=== PATIENT | male | born 1950 | race Caucasian/White ===

== ENCOUNTER → 2024-08-28 | Outpatient (CLI) | payer OTHER, SELFPAY ==
[2024-08-28 08:14] LABS: Collection Type, Urine Clean Catch
[2024-08-28 08:42] LABS: Basophils % (Auto) 1 % (0-2.5); Eosinophils # (Auto) 0.1 Thou/mm3 (0.0-0.5); Eosinophils % (Auto) 3 % (0-10); Hematocrit 39.6 % (41.0-53.0); Hemoglobin 14.4 g/dL (13.5-16.0); Immature Granulocytes % (Auto) 0 % (0-0); Lymphocytes # (Auto) 1.9 Thou/mm3 (1.0-4.8); Lymphocytes % (Auto) 42 % (10-50); Mean Corpuscular HGB Conc 36.4 g/dl (31.0-37.0); Mean Corpuscular Volume 85 fL (80-100); Monocytes # (Auto) 0.6 Thou/mm3 (0.0-0.8); Monocytes % (Auto) 13 % (0-12); Neutrophils # (Auto) 1.8 Thou/mm3 (1.8-7.7); Neutrophils % (Auto) 41 % (37-80); Nucleated Red Blood Cell % 0 /100 WBC (0); Platelet Count 222 Thou/mm3 (140-440); RDW Standard Deviation 37.4 fL (35.1-43.9); Red Blood Count 4.64 Miln/mm3 (4.50-5.90); White Blood Count 4.5 Thou/mm3 (3.8-10.6)
[2024-08-28 08:48] LABS: Bilirubin,Urine Negative (Negative); Blood,Urine Negative (Negative); Clarity,Urine Clear (Clear/Hazy); Color,Urine Lt-Yellow (Lt Yel-Yel); Glucose, Urine Negative (Negative); Ketones,Urine Negative (Negative); Leukocyte Esterase,Urine Negative (Negative); Nitrite,Urine Negative (Negative); Protein,Urine Negative (Neg - Trace); RBC,Urine 2 /hpf (0-3); Specific Gravity,Urine 1.017 (1.001-1.035); Squamous Epithelial Cell,Urine < 1 /hpf (0-5); Urobilinogen,Urine Negative mg/dL (0.0-1.0); WBC,Urine < 1 /hpf (0-5)
[2024-08-28 09:10] LABS: Prostate Specific Antigen 1.13 ng/mL (0-4.00)
[2024-08-28 09:18] LABS: Alanine Aminotransferase 20 U/L (10-49); Albumin, Serum 4.8 gm/dL (3.4-4.8); Albumin/Globulin Ratio 2.2 (1.2-2.2); Alkaline Phosphatase 67 U/L (46-116); Anion Gap 8 (7-16); Aspartate Amino Transferase 17 U/L (0-34); BUN/Creatinine Ratio 20 Ratio (12-20); Bilirubin,Total 0.6 mg/dL (0.3-1.2); Blood Urea Nitrogen 18 mg/dL (9-23); Calcium 9.2 mg/dL (8.3-10.6); Calcium (Corrected) 9.2 mg/dL (8.5-10.1); Carbon Dioxide 26.1 mMol/L (20.0-31.0); Cardiac Risk Estimate 3.1 RATIO (4.0-6.7); Chloride 108 mMol/L (98-107); Cholesterol 126 mg/dL (132-200); Creatinine (Component) 0.9 mg/dL (0.6-1.3); Globulin 2.2 gm/dL (2.3-3.5); Glucose 115 mg/dL (74-106); HDL Cholesterol 41 mg/dL (40-60); LDL Cholesterol,Calculated 68 mg/dL (0-130); Osmolality,Calculated 286 (275-295); Sodium 142 mMol/L (136-145); Triglycerides 83 mg/dL (30-150); eGFR > 60 See Note
== END | disposition home or self-care (01) ==
LOC: COPL 07:41
PROVIDERS: PCP Internal Medicine; Referring Provider Urology; Visit Provider Urology
DX: I10 Essential (primary) hypertension (principal); E78.5 Hyperlipidemia, unspecified; N40.1 Benign prostatic hyperplasia with lower urinary tract symptoms
CPT/HCPCS: 36415; 80053; 80061; 81001; 84153; 85025

== ENCOUNTER → 2024-09-04 | Outpatient (CLI) | payer OTHER, SELFPAY ==
[2024-09-04 11:35] LABS: Vitamin B12 381 pg/mL (211-911); Vitamin D 25 Hydroxy Total 27.6 ng/mL (7.3-40.2)
[2024-09-16 07:00] LABS: Testosterone, Free,Dialysis 49.2 pg/mL (30.0-135.0); Testosterone, Total, Dialysis 295 ng/dL (250-1100)
== END | disposition home or self-care (01) ==
PROVIDERS: PCP Internal Medicine; Referring Provider Internal Medicine; Visit Provider Internal Medicine
DX: E53.9 Vitamin B deficiency, unspecified (principal); E55.9 Vitamin D deficiency, unspecified
CPT/HCPCS: 36415; 82306; 82607; 84402; 84403

== ENCOUNTER → 2024-09-08 | Outpatient (BNVA) | payer OTHER, SELFPAY | END | disposition home or self-care (01) | PROVIDERS: PCP Internal Medicine; Referring Provider Internal Medicine; Visit Provider Urology | DX: N40.1 Benign prostatic hyperplasia with lower urinary tract symptoms (principal); N13.8 Other obstructive and reflux uropathy; I10 Essential (primary) hypertension; F32.9 Major depressive disorder, single episode, unspecified; G47.33 Obstructive sleep apnea (adult) (pediatric) | CPT/HCPCS: 81003; 99212; G0463 ==

== ENCOUNTER → 2024-11-13 | Outpatient (CLI) | payer OTHER, SELFPAY ==
[2024-11-24 10:52] LABS: Testosterone, Free,Dialysis 48.5 pg/mL (30.0-135.0); Testosterone, Total, Dialysis 230 ng/dL (250-1100)
== END | disposition home or self-care (01) ==
LOC: COPL 07:58
PROVIDERS: PCP Internal Medicine; Referring Provider Urology; Visit Provider Urology
DX: E53.9 Vitamin B deficiency, unspecified (principal); E55.9 Vitamin D deficiency, unspecified
CPT/HCPCS: 36415; 84402; 84403

== ENCOUNTER → 2025-02-10 | Outpatient (CLI) | payer OTHER, SELFPAY ==
[2025-02-10 11:48] LABS: Alanine Aminotransferase 19 U/L (10-49); Albumin, Serum 4.9 gm/dL (3.4-4.8); Albumin/Globulin Ratio 2.7 (1.2-2.2); Alkaline Phosphatase 62 U/L (46-116); Anion Gap 8 (7-16); Aspartate Amino Transferase 17 U/L (0-34); BUN/Creatinine Ratio 13 Ratio (12-20); Bilirubin,Total 0.6 mg/dL (0.3-1.2); Blood Urea Nitrogen 13 mg/dL (9-23); Calcium 9.1 mg/dL (8.3-10.6); Calcium (Corrected) 9.1 mg/dL (8.5-10.1); Carbon Dioxide 26.8 mMol/L (20.0-31.0); Chloride 107 mMol/L (98-107); Creatinine (Component) 1.0 mg/dL (0.6-1.3); Globulin 1.8 gm/dL (2.3-3.5); Glucose 123 mg/dL (74-106); Osmolality,Calculated 284 (275-295); Potassium 4.2 mMol/L (3.4-5.1); Sodium 142 mMol/L (136-145); Total Protein 6.7 gm/dL (5.7-8.2); eGFR > 60 See Note
[2025-02-10 12:27] LABS: D-Dimer 727 ng/mL (<600)
== END | disposition home or self-care (01) ==
LOC: COPL 10:20
PROVIDERS: PCP Internal Medicine; Referring Provider Internal Medicine; Visit Provider Internal Medicine
DX: R06.02 Shortness of breath (principal)
CPT/HCPCS: 36415; 80053; 85379

== ENCOUNTER 2025-02-13 08:02 | Emergency (ER) | payer OTHER, SELFPAY ==
[2025-02-13] VITALS (7 sets, daily range): BP systolic 115–128; BP diastolic 74–89; PULSE 72–97; RESP 14–20; TEMP 36.6–37.1; O2SAT 95–97
--- NOTE | 2025-02-13 08:34 | XR_ITS ---
Examination: CTA chest with intravenous contrast 2-D reconstructions 3-D reconstructions, vascular Date and time of exam: February 13, 2025, 1138 hours INDICATIONS: Chest pain shortness of breath beginning 2 weeks ago CTDI: vol (mGy) 18.8 DLP: (mGycm) 121 Technique: Multiple axial sections of the thorax have been obtained. 3 mm slice thickness, from below the hemidiaphragms to above the apices of the lungs. Mediastinal and lung density settings have been obtained. 2-D sagittal and coronal reconstructions. 3-D angiographic renderings, 3-D volume renderings, 3D post processing, vascular maximum intensity projections obtained. Contrast administered is 60 cc Isovue-300 Low dose protocols were performed. One or more of the following dose reduction techniques were used; automated exposure control, adjustment of the mA and/or KV according to patient size, use of iterative reconstruction technique. Findings: No thoracic aortic aneurysmal dilatation or dissection. Pulmonary artery segments are not enlarged. No pulmonary artery filling defects No paratracheal or tracheobronchial bronchopulmonary adenopathy No pneumonia or pulmonary edema or pleural disease No focal liver or splenic lesions No gallstones No pancreatic or adrenal mass Upper pole left renal cyst 6.2 cm Partial visualization right renal cyst at the 7.2 cm IMPRESSION: No thoracic aortic aneurysm dilatation or dissection Negative for pulmonary artery emboli No pneumonia, pulmonary edema, pleural disease or pulmonary nodules
--- NOTE | 2025-02-13 08:34 | EKG_ITS ---
[facility] Test Date: 2025-02-13 Pat Name: OSCAR GUTIERREZ Department: Room: - Gender: Male [place]: : 1950 Requested By: Masood Kaur Order Number: [id number] Reading MD: Masood Kaur Measurements Intervals [place] Rate: 87 P: TN: QRS: 39 QRSD: 95 T: 45 QT: 345 QTc: 417 Interpretive Statements ATRIAL FIBRILLATION ABNORMAL RHYTHM ECG Compared to ECG 12/19/2019 10:59:24 Sinus bradycardia no longer present /store/S0/[id number]/[id number].pdf
--- NOTE | 2025-02-13 08:35 | PD.EDRME ---
Rapid Medical Screening Exam [facility] Arrival date/time: 02/13/25 08:02 74-year-old male with a history of hypertension presents to the emergency room with a chief complaint of shortness of breath and some chest tightness x 2 weeks. Patient was sent here by his primary care provider due to an elevated D-dimer level for a CT to rule out pulmonary embolism. I have greeted and performed a focused initial assessment of this patient. A comprehensive ED assessment and evaluation of the patient, analysis of all test results, and completion of the medical decision making process will be conducted by additional ED providers. Chief Complaint: General Adult/Misc Complain Time Seen by Provider: 02/13/25 08:25 Vital signs: Vital Signs Temperature 98 F 02/13/25 08:20 Pulse Rate 93 02/13/25 08:20 Respiratory Rate 18 02/13/25 08:20 Blood Pressure 115/74 02/13/25 08:20 Pulse Oximetry (%) 98 02/13/25 08:20 Oxygen Delivery Method Room Air 02/13/25 08:20 Vital signs reviewed by provider: Yes Exam: Clear bilateral lung sounds with auscultation Strong and regular rhythm S1 and S2 noted Clinical Impression: Elevated D-dimer/pulmonary embolism/chest pain
[2025-02-13 08:56] LABS: Basophils # (Auto) 0.0 Thou/mm3 (0.0-0.2); Basophils % (Auto) 1 % (0-2.5); Eosinophils # (Auto) 0.0 Thou/mm3 (0.0-0.5); Eosinophils % (Auto) 1 % (0-10); Hematocrit 44.2 % (41.0-53.0); Hemoglobin 15.6 g/dL (13.5-16.0); Immature Granulocytes Auto 0.01 Thou/mm3 (0.00-0.00); Lymphocytes # (Auto) 2.2 Thou/mm3 (1.0-4.8); Lymphocytes % (Auto) 36 % (10-50); Mean Corpuscular HGB Conc 35.3 g/dl (31.0-37.0); Mean Corpuscular Hemoglobin 31.0 pg (25.0-35.0); Mean Corpuscular Volume 88 fL (80-100); Monocytes # (Auto) 0.7 Thou/mm3 (0.0-0.8); Monocytes % (Auto) 11 % (0-12); Neutrophils # (Auto) 3.2 Thou/mm3 (1.8-7.7); Neutrophils % (Auto) 51 % (37-80); Nucleated Red Blood Cell # 0.00 Thou/mm3 (0.00-0.00); Nucleated Red Blood Cell % 0 /100 WBC (0); Platelet Count 256 Thou/mm3 (140-440); RDW Standard Deviation 39.6 fL (35.1-43.9); Red Blood Count 5.03 Miln/mm3 (4.50-5.90); White Blood Count 6.2 Thou/mm3 (3.8-10.6)
--- NOTE | 2025-02-13 09:04 | XR_ITS ---
EXAMINATION: AP chest single view TECHNIQUE: AP portable semiupright chest single view Date and time: February 13, 2025, 0922 hours, comparison December 05, 2018 INDICATIONS: Coughing beginning 3 days ago. FINDINGS: Normal heart size Lungs are clear. Prominent osteopenia. Lower cervical plate IMPRESSION: No active disease
[2025-02-13 09:11] LABS: B-Type Natriuretic Peptide 126 pg/mL (0-100); INR 1.1 (0.9-1.3); Partial Thromboplastin Time 27.4 Seconds (22.0-36.0); Prothrombin Time 11.3 Seconds (9.0-12.2)
[2025-02-13 09:12] LABS: D-Dimer 713 ng/mL (<600)
[2025-02-13 09:13] LABS: Alanine Aminotransferase 22 U/L (10-49); Albumin, Serum 5.0 gm/dL (3.4-4.8); Albumin/Globulin Ratio 2.3 (1.2-2.2); Alkaline Phosphatase 66 U/L (46-116); Anion Gap 8 (7-16); Aspartate Amino Transferase 16 U/L (0-34); BUN/Creatinine Ratio 11 Ratio (12-20); Bilirubin,Total 0.8 mg/dL (0.3-1.2); Blood Urea Nitrogen 14 mg/dL (9-23); Calcium 9.5 mg/dL (8.3-10.6); Calcium (Corrected) 9.5 mg/dL (8.5-10.1); Carbon Dioxide 27.6 mMol/L (20.0-31.0); Chloride 105 mMol/L (98-107); Creatinine (Component) 1.3 mg/dL (0.6-1.3); Estimated Creatinine Clearance 54.1 mL/min (>60); Globulin 2.2 gm/dL (2.3-3.5); Glucose 120 mg/dL (74-106); Magnesium 2.5 mg/dL (1.6-2.6); Osmolality,Calculated 282 (275-295); Potassium 4.0 mMol/L (3.4-5.1); Sodium 141 mMol/L (136-145); Total Protein 7.2 gm/dL (5.7-8.2); Troponin I < 0.020 ng/mL (0.0-0.045); eGFR 58 See Note
[2025-02-13] MEDS: SODIUM CHLORIDE 0.9% 1000 ML 1,000 ML 100 ML IV (09:23)
[2025-02-13 09:35] LABS: Collection Type, Urine Clean Catch; Squamous Epithelial Cell,Urine 0 /hpf (0-5)
[2025-02-13 09:37] LABS: Basophils # (Auto) 0.0 Thou/mm3 (0.0-0.2); Basophils % (Auto) 1 % (0-2.5); Eosinophils # (Auto) 0.1 Thou/mm3 (0.0-0.5); Eosinophils % (Auto) 1 % (0-10); Hematocrit 42.8 % (41.0-53.0); Hemoglobin 15.1 g/dL (13.5-16.0); Immature Granulocytes Auto 0.01 Thou/mm3 (0.00-0.00); Lymphocytes # (Auto) 1.8 Thou/mm3 (1.0-4.8); Lymphocytes % (Auto) 33 % (10-50); Mean Corpuscular HGB Conc 35.3 g/dl (31.0-37.0); Mean Corpuscular Hemoglobin 30.8 pg (25.0-35.0); Mean Corpuscular Volume 87 fL (80-100); Monocytes # (Auto) 0.7 Thou/mm3 (0.0-0.8); Monocytes % (Auto) 13 % (0-12); Neutrophils # (Auto) 2.8 Thou/mm3 (1.8-7.7); Neutrophils % (Auto) 52 % (37-80); Nucleated Red Blood Cell # 0.00 Thou/mm3 (0.00-0.00); Nucleated Red Blood Cell % 0 /100 WBC (0); Platelet Count 231 Thou/mm3 (140-440); RDW Standard Deviation 39.3 fL (35.1-43.9); Red Blood Count 4.90 Miln/mm3 (4.50-5.90); White Blood Count 5.4 Thou/mm3 (3.8-10.6)
[2025-02-13 09:56] LABS: Troponin I < 0.020 ng/mL (0.0-0.045)
[2025-02-13 11:53] LABS: Bilirubin,Urine Negative (Negative); Blood,Urine 2+ (Negative); Clarity,Urine Clear (Clear/Hazy); Color,Urine Yellow (Lt Yel-Yel); Culture Indicated,Urine Not Indicated; Glucose, Urine Negative (Negative); Hyaline Casts,Urine < 1 /hpf (0-1); Ketones,Urine Negative (Negative); Leukocyte Esterase,Urine Negative (Negative); Nitrite,Urine Negative (Negative); PH,Urine 6.0 (5.0-7.0); Protein,Urine Trace (Neg - Trace); RBC,Urine 19 /hpf (0-3); Specific Gravity,Urine 1.024 (1.001-1.035); Urobilinogen,Urine Negative mg/dL (0.0-1.0); WBC,Urine 1 /hpf (0-5)
--- NOTE | 2025-02-13 15:07 | PD.EDADULT ---
ED General RME/HPI General Chief complaint: General Adult/Misc Complain Stated complaint: TOLD TO COME BACK FOR HIGH D-DIMER Time Seen by Provider: 02/13/25 08:25 Arrival date/time: 02/13/25 08:02 Limitations: no limitations RME / HPI RME / HPI narrative: 02/13/25 08:02 74-year-old male with a history of hypertension presents to the emergency room with a chief complaint of shortness of breath and some chest tightness x 2 weeks. Patient was sent here by his primary care provider due to an elevated D-dimer level for a CT to rule out pulmonary embolism. I have greeted and performed a focused initial assessment of this patient. A comprehensive ED assessment and evaluation of the patient, analysis of all test results, and completion of the medical decision making process will be conducted by additional ED providers. DR. RIZO MAIN ED EVALUATION: 74 year old male with history of hypertension presents to the ED referred by his PCP Dr. Renteria for evaluation of elevated D-Dimer level today. Patient states he had outpatient labs performed and called today stating the D-Dimer was 727. In the ED, patient complains of feeling slightly dizzy and short of breath. Otherwise, has no other medical complaints. Denies fevers, chills, chest pain, abdominal pain, n/v/d, or urinary symptoms. Exam: Clear bilateral lung sounds with auscultation Strong and regular rhythm S1 and S2 noted Impression: Elevated D-dimer/pulmonary embolism/chest pain Related Data Home Medications ?Medication ?Instructions ?Recorded ?Confirmed amlodipine 10 mg tablet 10 mg PO DAILY 12/19/19 09/08/24 furosemide 20 mg tablet 20 mg PO QDAY 12/19/19 09/08/24 montelukast 10 mg tablet 10 mg PO QDAY 12/19/19 09/08/24 pantoprazole 20 mg tablet,delayed 20 mg PO QDAY 12/19/19 09/08/24 release Previous Rx's ?Medication ?Instructions ?Recorded docusate sodium 100 mg capsule 100 mg PO QDAY #30 caps 12/23/19 Allergies Allergy/AdvReac Type Severity Reaction Status Date / Time No Known Allergies Allergy Verified 02/13/25 08:05 Review of Systems Review of Systems Systems Reviewed: All systems reviewed, normal except as documented Past Medical History Past Medical History CARDIAC: Positive Cardiac Disorders (htn), Hypercholesterolemia (TAKES MED) and Hypertension RESPIRATORY: Positive Asthma (cpap) and Sleep Apnea (CPAP) GASTROINTESTINAL: Positive Gastrointestinal Disorders and Hiatal Hernia GENITOURINARY: Positive Genitourinary Disorders and Benign Prostatic Hyperplasia (TAKES MED) MUSCULOSKELETAL: Positive Musculoskeletal Disorders and Fractures (RIGHT SHOULDER) Family History FAMILY HISTORY: Positive Family Cardiac Disorders (MOTHER,BROTHERS (HTN)), Family Cancer (BROTHER (TUMOR)) and Family Surgery (FATHER,BROTHER) Surgical History SURGICAL: Negative Pacemaker Social History SMOKING STATUS: Never smoker ED Exam General Limitations: Present no limitations General appearance: Present alert and anxious Head Head exam: Present atraumatic, normocephalic and normal inspection Eye Eye exam: Present normal appearance, PERRL and EOMI ENT ENT exam: Present normal exam, normal oropharynx and mucous membranes moist Neck Neck exam: Present normal inspection, full ROM and trachea midline Chest Chest inspection: Present normal inspection and symmetric chest wall rise Respiratory Respiratory exam: Present normal lung sounds bilaterally Cardiovascular Cardiovascular exam: Present regular rate, normal rhythm and normal heart sounds Abdominal Exam Abdominal exam: Present soft and normal bowel sounds Extremities Exam Extremities exam: Present normal inspection and full ROM Back Exam Back exam: Present normal inspection and full ROM Neurological Exam Neurological exam: Present alert, oriented X3 and CN II-XII intact Psychiatric Psychiatric exam: Present anxious Skin Skin exam: Present warm, dry, intact and normal color Course Quality Measures none Orders Category Date Time Status CT Screening NOW Care 02/13/25 08:35 Completed Technology Lead NOW Care 02/13/25 09:04 Completed Continuous Pulse Oximetry NOW Care 02/13/25 09:04 Completed EKG (ED ONLY) *Do not use* NOW Care 02/13/25 08:34 Completed IV [Insert IV] NOW Care 02/13/25 09:04 Completed Insert IV NOW Care 02/13/25 09:[address] angio chest Stat Exams 02/13/25 08:34 Completed EKG (ED Only) Stat Exams 02/13/25 08:34 Draft XR chest 1V portable Stat Exams 02/13/25 09:04 Completed B-Type Natriuretic Peptide Stat Lab 02/13/25 08:41 Completed CBC Stat Lab 02/13/25 08:41 Completed CBC Stat Lab 02/13/25 09:16 Completed Comprehensive Metabolic Panel Stat Lab 02/13/25 08:41 Completed D-Dimer Stat Lab 02/13/25 08:41 Completed Magnesium Stat Lab 02/13/25 08:41 Completed Partial Thromboplastin Time Stat Lab 02/13/25 08:41 Completed Prothrombin Time with INR Stat Lab 02/13/25 08:41 Completed Troponin I Stat Lab 02/13/25 08:41 Completed Troponin I Stat Lab 02/13/25 09:16 Completed Urinalysis, C/S if Indicated Stat Lab 02/13/25 09:24 Completed Sodium Chloride 0.9% 1000 ml [Ns] 1,000 ml Med 02/13/25 09:04 Discontinued IV 100 mls/hr Vital Signs Vital signs: Vital Signs Temperature 98 F 02/13/25 08:20 Pulse Rate 93 02/13/25 08:20 Respiratory Rate 18 02/13/25 08:20 Blood Pressure 115/74 02/13/25 08:20 Pulse Oximetry (%) 96 02/13/25 08:20 Oxygen Delivery Method Room Air 02/13/25 08:20 Pulse ox is 96% on room air which is adequate. Discharge Plan Plan Patient Disposition: HOME (Self Care) Patient condition on transfer: Stable Prescriptions/Referrals Prescriptions/Med Rec: No Action pantoprazole 20 mg Tablet,Delayed Release (Dr/Ec) 20 mg PO QDAY amlodipine 10 mg Tablet 10 mg PO DAILY montelukast 10 mg Tablet 10 mg PO QDAY furosemide 20 mg Tablet 20 mg PO QDAY docusate sodium 100 mg Capsule 100 mg PO QDAY Qty: 30 0RF Referrals: Kristopher Renteria MD [Primary Care Provider, Nephrology] - In 1 week Problem List Clinical Impression: Elevated d-dimer, Acute dyspnea Patient/Caregiver Discharge Instructions Discharge Activity: activity as tolerated Education Materials: ED Shortness of Breath (Dyspnea) Additional Instructions: Follow-up with your doctor next week. continue your usual medications.. Print Language: Hebrew Stand Alone Forms: Mariela Award Info., Patient Portal Info Letter MDM Narrative MDM hospital course (for use when minimal MDM required): Alejandra Garcia am scribing for and in the presence of Dr. Rizo. Clinical Information Provided by: patient Medical Records reviewed [facility] Meds/Rx considered, not ordered None Labs/Rad/Tests considered, not ordered None Chronic Illness/Social Conditions which may negatively complicate care or outcome(s)-explain: None or not applicable EKG Interpretation EKG #1: EKG Interpretation: EKG @ 08:45AM. Atrial fibrillation, rate 87, no STEMI. Labs Lab(s) Interpretation(s): No acute findings Imaging Imaging Interpretation(s): Ordering Physician: Masood Calvillo Date of Service: 02/13/25 Procedure(s): CT angio chest Accession Number(s): [id number] cc: Masood Calvillo; Pancho Morris MD; Kristopher Renteria MD~ Examination: CTA chest with intravenous contrast 2-D reconstructions 3-D reconstructions, vascular Date and time of exam: February 13, 2025, 1138 hours INDICATIONS: Chest pain shortness of breath beginning 2 weeks ago CTDI: vol (mGy) 18.8 DLP: (mGycm) 121 Technique: Multiple axial sections of the thorax have been obtained. 3 mm slice thickness, from below the hemidiaphragms to above the apices of the lungs. Mediastinal and lung density settings have been obtained. 2-D sagittal and coronal reconstructions. 3-D angiographic renderings, 3-D volume renderings, 3D post processing, vascular maximum intensity projections obtained. Contrast administered is 60 cc Isovue-300 Low dose protocols were performed. One or more of the following dose reduction techniques were used; automated exposure control, adjustment of the mA and/or KV according to patient size, use of iterative reconstruction technique. Findings: No thoracic aortic aneurysmal dilatation or dissection. Pulmonary artery segments are not enlarged. No pulmonary artery filling defects No paratracheal or tracheobronchial bronchopulmonary adenopathy No pneumonia or pulmonary edema or pleural disease No focal liver or splenic lesions No gallstones No pancreatic or adrenal mass Upper pole left renal cyst 6.2 cm Partial visualization right renal cyst at the 7.2 cm IMPRESSION: No thoracic aortic aneurysm dilatation or dissection Negative for pulmonary artery emboli No pneumonia, pulmonary edema, pleural disease or pulmonary nodules Dictated By: Pancho Morris MD Signed By: <Electronically signed by Pancho Morris MD in [place]> 02/13/25 1200 Ordering Physician: Joe Rizo MD Date of Service: 02/13/25 Procedure(s): XR chest 1V portable Accession Number(s): [id number] cc: Joe Rizo MD; Pancho Morris MD; Kristophre Renteria MD~ EXAMINATION: AP chest single view TECHNIQUE: AP portable semiupright chest single view Date and time: February 13, 2025, 0922 hours, comparison December 05, 2018 INDICATIONS: Coughing beginning 3 days ago. FINDINGS: Normal heart size Lungs are clear. Prominent osteopenia. Lower cervical plate IMPRESSION: No active disease Dictated By: Pancho Morris MD Signed By: <Electronically signed by Pancho Morris MD in [place]> 02/13/25 0939 Medication Administration(s) Medication Administration History Discontinued Medications Sodium Chloride (Ns) 1,000 mls @ 100 mls/hr IV .Q10H ONE Stop: 02/13/25 19:03 Last Admin: 02/13/25 09:23 Dose: 100 mls/hr Documented By: DB See above Diagnosis Diagnoses ruled out and/or further discussions: Elevated D-dimer Acute dsypnea
--- NOTE | 2025-02-13 15:16 | PC.NURSE ---
MD at bedside explaining tests an discharge instructions
== END 2025-02-13 15:40 | disposition home or self-care (01) ==
PROVIDERS: Nurse Practitioner Family; Emergency Provider Family Medicine; PCP Internal Medicine
DX: R79.89 Other specified abnormal findings of blood chemistry (principal); R06.00 Dyspnea, unspecified; I10 Essential (primary) hypertension; I48.91 Unspecified atrial fibrillation
CPT/HCPCS: 36415; 71045; 71275; 80053; 81001; 83735; 83880; 84484; 85025; 85379; 85610; 85730; 93005; 99284; A4649; J7030; Q9967

== ENCOUNTER → 2025-03-23 | Outpatient (CLI) | payer OTHER, SELFPAY ==
[2025-03-23 12:15] LABS: Basophils # (Auto) 0.0 Thou/mm3 (0.0-0.2); Basophils % (Auto) 1 % (0-2.5); Eosinophils # (Auto) 0.1 Thou/mm3 (0.0-0.5); Eosinophils % (Auto) 2 % (0-10); Hematocrit 45.0 % (41.0-53.0); Hemoglobin 15.4 g/dL (13.5-16.0); Immature Granulocytes Auto 0.01 Thou/mm3 (0.00-0.00); Lymphocytes # (Auto) 1.8 Thou/mm3 (1.0-4.8); Lymphocytes % (Auto) 38 % (10-50); Mean Corpuscular HGB Conc 34.2 g/dl (31.0-37.0); Mean Corpuscular Hemoglobin 30.6 pg (25.0-35.0); Mean Corpuscular Volume 90 fL (80-100); Monocytes # (Auto) 0.4 Thou/mm3 (0.0-0.8); Monocytes % (Auto) 8 % (0-12); Neutrophils # (Auto) 2.4 Thou/mm3 (1.8-7.7); Neutrophils % (Auto) 51 % (37-80); Nucleated Red Blood Cell # 0.00 Thou/mm3 (0.00-0.00); Nucleated Red Blood Cell % 0 /100 WBC (0); Platelet Count 208 Thou/mm3 (140-440); RDW Standard Deviation 41.0 fL (35.1-43.9); Red Blood Count 5.03 Miln/mm3 (4.50-5.90); White Blood Count 4.8 Thou/mm3 (3.8-10.6)
[2025-03-23 12:26] LABS: Alanine Aminotransferase 30 U/L (10-49); Albumin, Serum 5.1 gm/dL (3.4-4.8); Albumin/Globulin Ratio 2.3 (1.2-2.2); Alkaline Phosphatase 66 U/L (46-116); Anion Gap 10 (7-16); Aspartate Amino Transferase 20 U/L (0-34); BUN/Creatinine Ratio 16 Ratio (12-20); Bilirubin,Total 0.6 mg/dL (0.3-1.2); Blood Urea Nitrogen 16 mg/dL (9-23); Calcium 9.4 mg/dL (8.3-10.6); Calcium (Corrected) 9.4 mg/dL (8.5-10.1); Carbon Dioxide 27.7 mMol/L (20.0-31.0); Cardiac Risk Estimate 3.4 RATIO (4.0-6.7); Chloride 108 mMol/L (98-107); Cholesterol 169 mg/dL (132-200); Creatinine (Component) 1.0 mg/dL (0.6-1.3); Globulin 2.2 gm/dL (2.3-3.5); Glucose 94 mg/dL (74-106); HDL Cholesterol 49 mg/dL (40-60); LDL Cholesterol,Calculated 102 mg/dL (0-130); Osmolality,Calculated 291 (275-295); Potassium 4.4 mMol/L (3.4-5.1); Sodium 146 mMol/L (136-145); Thyroid Stimulating Hormone 2.57 uIU/mL (0.55-4.78); Total Protein 7.3 gm/dL (5.7-8.2); Triglycerides 92 mg/dL (30-150); eGFR > 60 See Note
[2025-03-23 12:39] LABS: Collection Type, Urine Clean Catch; Squamous Epithelial Cell,Urine 0 /hpf (0-5)
[2025-03-23 13:15] LABS: Bilirubin,Urine Negative (Negative); Blood,Urine Negative (Negative); Clarity,Urine Clear (Clear/Hazy); Color,Urine Lt-Yellow (Lt Yel-Yel); Glucose, Urine Negative (Negative); Ketones,Urine Negative (Negative); Leukocyte Esterase,Urine Negative (Negative); Nitrite,Urine Negative (Negative); PH,Urine 7.0 (5.0-7.0); Protein,Urine Negative (Neg - Trace); RBC,Urine 2 /hpf (0-3); Specific Gravity,Urine 1.011 (1.001-1.035); Urobilinogen,Urine Negative mg/dL (0.0-1.0); WBC,Urine < 1 /hpf (0-5)
== END | disposition home or self-care (01) ==
LOC: COPL 11:10
PROVIDERS: PCP Internal Medicine; Referring Provider Internal Medicine; Visit Provider Internal Medicine
DX: I10 Essential (primary) hypertension (principal); E78.5 Hyperlipidemia, unspecified
CPT/HCPCS: 36415; 80053; 80061; 81001; 84443; 85025